=== PATIENT | male | born 1955 | race Caucasian/White ===

== ENCOUNTER 2020-08-12 11:41 | Outpatient (REF) | payer MEDICARE, SELFPAY ==
[2020-08-12 11:58] LABS: MANUAL DIFF FLAG NO
[2020-08-12 12:01] LABS: Basophils Absolute Auto 0.1 X10*3/uL (0.0-0.2); Basophils Percent Auto 0.9 % (0-2); Eosinophils Absolute Auto 0.3 X10*3/uL (0.0-0.4); Eosinophils Percent Auto 3.9 % (0-4); Hemoglobin 14.9 g/dl (14.0-18.0); Imm Gran Abs Auto 0.01 X10*3/uL (0.00-0.03); Imm Gran Pct Auto 0.1 % (0.0-0.4); Lymphocytes Absolute Auto 2.2 X10*3/uL (1.2-4.9); Lymphocytes Percent Auto 28.5 % (20-40); Mean Corpuscular HGB Conc 32.4 g/dl (31.0-36.0); Mean Corpuscular Hemoglobin 32.6 pg (27.0-33.0); Mean Corpuscular Volume 100.7 fL (80-98); Mean Platelet Volume 9.9 fL (9.4-12.4); Monocytes Absolute Auto 0.5 X10*3/uL (0.1-1.2); Monocytes Percent Auto 5.9 % (2-11); Neutrophils Absolute Auto 4.6 X10*3/uL (2.0-8.3); Neutrophils Percent Auto 60.7 % (45-73); Platelet Count 268 X10*3/uL (160-400); Red Blood Count 4.57 X10*6/uL (4.60-5.80); White Blood Count 7.6 X10*3/uL (4.8-10.8)
[2020-08-12 12:17] LABS: Glucose Urine UA NEG (NEG); Leukocyte Esterase Urine NEG (NEG); Nitrite Urine NEG (NEG); Specific Gravity - Urine 1.025 (1.005-1.025); Urine Blood NEG (NEG); Urine Ketones NEG (NEG); Urine Protein NEG (NEG-TRACE)
[2020-08-12 12:18] LABS: Appearance Urine CLEAR; Color Urine YELLOW
[2020-08-12 12:33] LABS: Alanine Aminotransferase 61 U/L (0-40); Albumin Level 4.3 g/dL (3.5-5.0); Alkaline Phosphatase 101 U/L (39-117); Anion Gap 18 (12-20); Aspartate Amino Transferase 54 U/L (5-37); Bilirubin Total 0.7 mg/dL (0.0-1.0); Blood Urea Nitrogen 15 mg/dL (9-16); Calcium 10.2 mg/dL (8.4-10.2); Carbon Dioxide 27 mmol/L (22-29); Chloride 100 mmol/L (96-108); Cholesterol 256 mg/dL; Estimated Glomerular Filt Rate > 60; Glucose Fasting 192 mg/dL (60-99); HDL Cholesterol 46 mg/dL; LDL Cholesterol Calculated 147 mg/dl; Potassium 5.8 mmol/L (3.3-5.1); Sodium 139 mmol/L (135-145); Total Protein 7.5 g/dL (6.5-8.0); Triglycerides 316 mg/dL
[2020-08-12 12:50] LABS: TSH reflex Free T4 1.73 uIU/mL (0.32-4.0)
[2020-08-12 13:00] LABS: Creatinine Urine 129.31 mg/dL; Microalbum/Creatinine Ratio Ur 24.7 ug/mg cr
[2020-08-12 13:05] LABS: Estimated Average Glucose 189 mg/dL; Hemoglobin A1c % 8.2 %
== END 2020-08-12 11:42 | disposition home or self-care (01) ==
LOC: HO.LHD 11:41
PROVIDERS: Visit Provider Internal Medicine
DX: E11.9 Type 2 diabetes mellitus without complications (principal); I10 Essential (primary) hypertension; E78.5 Hyperlipidemia, unspecified; R79.89 Other specified abnormal findings of blood chemistry
CPT/HCPCS: 36415; 80053; 80061; 81003; 82043; 83036; 84443; 85025

== ENCOUNTER 2020-12-17 11:20 | Outpatient (REF) | payer MEDICARE, SELFPAY ==
[2020-12-17 12:14] LABS: MANUAL DIFF FLAG NO
[2020-12-17 12:17] LABS: Basophils Absolute Auto 0.1 X10*3/uL (0.0-0.2); Basophils Percent Auto 0.7 % (0-2); Eosinophils Absolute Auto 0.3 X10*3/uL (0.0-0.4); Eosinophils Percent Auto 4.4 % (0-4); Hematocrit 46.2 % (42-52); Hemoglobin 14.7 g/dl (14.0-18.0); Imm Gran Abs Auto 0.02 X10*3/uL (0.00-0.03); Imm Gran Pct Auto 0.3 % (0.0-0.4); Lymphocytes Absolute Auto 2.4 X10*3/uL (1.2-4.9); Lymphocytes Percent Auto 31.6 % (20-40); Mean Corpuscular HGB Conc 31.8 g/dl (31.0-36.0); Mean Corpuscular Hemoglobin 31.9 pg (27.0-33.0); Mean Corpuscular Volume 100.2 fL (80-98); Mean Platelet Volume 10.3 fL (9.4-12.4); Monocytes Absolute Auto 0.4 X10*3/uL (0.1-1.2); Neutrophils Absolute Auto 4.4 X10*3/uL (2.0-8.3); Platelet Count 271 X10*3/uL (160-400); Red Blood Count 4.61 X10*6/uL (4.60-5.80); Red Cell Distribution Width 13.1 % (11.0-16.0); White Blood Count 7.5 X10*3/uL (4.8-10.8)
[2020-12-17 12:20] LABS: Glucose Urine UA NEG (NEG); Leukocyte Esterase Urine NEG (NEG); Nitrite Urine NEG (NEG); Urine Blood NEG (NEG); Urine Ketones NEG (NEG); Urine Protein NEG (NEG-TRACE)
[2020-12-17 12:21] LABS: Appearance Urine CLEAR; Color Urine YELLOW
[2020-12-17 12:51] LABS: TSH reflex Free T4 1.47 uIU/mL (0.32-4.0)
[2020-12-17 12:52] LABS: Alanine Aminotransferase 41 U/L (0-40); Albumin Level 4.4 g/dL (3.5-5.0); Alkaline Phosphatase 95 U/L (39-117); Anion Gap 14 (12-20); Aspartate Amino Transferase 43 U/L (5-37); Bilirubin Total 0.5 mg/dL (0.0-1.0); Blood Urea Nitrogen 15 mg/dL (9-16); Calcium 10.7 mg/dL (8.4-10.2); Carbon Dioxide 29 mmol/L (22-29); Chloride 101 mmol/L (96-108); Cholesterol 268 mg/dL; Estimated Glomerular Filt Rate > 60; Glucose Fasting 170 mg/dL (60-99); HDL Cholesterol 43 mg/dL; LDL Cholesterol Calculated 172 mg/dl; Sodium 139 mmol/L (135-145); Total Protein 7.6 g/dL (6.5-8.0); Triglycerides 265 mg/dL; Uric Acid 5.5 mg/dL (3.4-7.0)
[2020-12-17 13:30] LABS: Microalbum/Creatinine Ratio Ur 61.8 ug/mg cr
[2020-12-17 13:57] LABS: Estimated Average Glucose 192 mg/dL; Hemoglobin A1c % 8.3 %
== END 2020-12-17 11:21 | disposition home or self-care (01) ==
LOC: HO.LHD 11:20
PROVIDERS: Visit Provider Internal Medicine
DX: E78.00 Pure hypercholesterolemia, unspecified (principal); E11.9 Type 2 diabetes mellitus without complications; I10 Essential (primary) hypertension; M10.9 Gout, unspecified
CPT/HCPCS: 36415; 80053; 80061; 81003; 82043; 83036; 84443; 84550; 85025

== ENCOUNTER 2021-06-03 12:30 | Outpatient (REF) | payer MEDICARE, SELFPAY ==
[2021-06-03 12:36] LABS: MANUAL DIFF FLAG NO
[2021-06-03 12:43] LABS: Appearance Urine HAZY; Color Urine YELLOW; Glucose Urine UA NEG (NEG); Leukocyte Esterase Urine NEG (NEG); Nitrite Urine NEG (NEG); UACC Culture Trigger NO; Urine Blood 3+ (NEG); Urine Ketones NEG (NEG); Urine Protein TRACE MG/DL (NEG-TRACE)
[2021-06-03 12:49] LABS: Basophils Absolute Auto 0.1 X10*3/uL (0.0-0.2); Basophils Percent Auto 0.6 % (0-2); Eosinophils Absolute Auto 0.4 X10*3/uL (0.0-0.4); Eosinophils Percent Auto 4.7 % (0-4); Hematocrit 43.7 % (42.0-52.0); Hemoglobin 14.2 g/dl (14.0-18.0); Imm Gran Abs Auto 0.02 X10*3/uL (0.00-0.03); Imm Gran Pct Auto 0.2 % (0.0-0.4); Lymphocytes Absolute Auto 2.3 X10*3/uL (1.2-4.9); Lymphocytes Percent Auto 27.3 % (20-40); Mean Corpuscular HGB Conc 32.5 g/dl (31.0-36.0); Mean Corpuscular Hemoglobin 32.5 pg (27.0-33.0); Monocytes Absolute Auto 0.5 X10*3/uL (0.1-1.2); Monocytes Percent Auto 5.9 % (2-11); Neutrophils Absolute Auto 5.2 x10*3/uL (2.0-8.3); Neutrophils Percent Auto 61.3 % (45-73); Platelet Count 283 X10*3/uL (160-400); Red Blood Count 4.37 X10*6/uL (4.60-5.80); Red Cell Distribution Width 13.2 % (11.0-16.0); White Blood Count 8.5 X10*3/uL (4.8-10.8)
[2021-06-03 12:53] LABS: Estimated Average Glucose 157 mg/dL; Hemoglobin A1c % 7.1 %
[2021-06-03 13:01] LABS: Mucus Urine TRACE /LPF; RBC Urine 50-75 /HPF (0); Squamous Epithelial Cell Urine TRACE /LPF; WBC Urine 0 /HPF (0-4)
[2021-06-03 13:03] LABS: Alanine Aminotransferase 41 U/L (0-40); Albumin Level 4.3 g/dL (3.5-5.0); Alkaline Phosphatase 88 U/L (39-117); Anion Gap 13 (12-20); Aspartate Amino Transferase 29 U/L (5-37); Bilirubin Total 0.7 mg/dL (0.0-1.0); Blood Urea Nitrogen 9 mg/dL (9-16); Calcium 10.3 mg/dL (8.4-10.2); Carbon Dioxide 31 mmol/L (22-29); Chloride 103 mmol/L (96-108); Cholesterol 250 mg/dL; Estimated Glomerular Filt Rate > 60; Glucose Fasting 121 mg/dL (60-99); HDL Cholesterol 45 mg/dL; LDL Cholesterol Calculated 151 mg/dl; Potassium 5.4 mmol/L (3.3-5.1); Sodium 142 mmol/L (135-145); Total Protein 7.4 g/dL (6.5-8.0); Triglycerides 273 mg/dL; Uric Acid 5.7 mg/dL (3.4-7.0)
[2021-06-03 13:06] LABS: Creatinine Urine 164.15 mg/dL; Microalbum/Creatinine Ratio Ur 49.3 ug/mg cr
[2021-06-03 13:24] LABS: TSH reflex Free T4 2.14 uIU/mL (0.32-4.0)
[2021-06-03 13:26] LABS: Erythrocyte Sedimentation Rate 17 MM/HR (0-15)
== END 2021-06-03 12:31 | disposition home or self-care (01) ==
LOC: HO.LHD 12:30
PROVIDERS: Visit Provider Internal Medicine
DX: I10 Essential (primary) hypertension (principal); E11.9 Type 2 diabetes mellitus without complications; E78.00 Pure hypercholesterolemia, unspecified; E55.9 Vitamin D deficiency, unspecified; M10.9 Gout, unspecified; M16.0 Bilateral primary osteoarthritis of hip; M17.11 Unilateral primary osteoarthritis, right knee; M50.30 Other cervical disc degeneration, unspecified cervical region; M51.36 Other intervertebral disc degeneration, lumbar region
CPT/HCPCS: 36415; 80053; 80061; 81001; 82043; 82306; 83036; 84443; 84550; 85025; 85652

== ENCOUNTER 2021-08-27 14:45 | Emergency (ER) | payer MEDICARE, SELFPAY ==
--- NOTE | ~2021-08-27 | XR_ITS ---
EXAMINATION: XR CHEST CLINICAL INFORMATION: Chest pain COMPARISON: Previous chest x-ray November 2006 TECHNIQUE: Frontal view of the chest was obtained. FINDINGS: The cardiac silhouette is upper normal in size. Hilar and mediastinal contours are unremarkable. There is a 4 x 9 mm nodule at the right lung apex. This is stable from previous exam and probably represents a calcified granuloma. The lungs are otherwise clear. There is no pleural effusion or pneumothorax. Bony structures are unremarkable. XR/XR chest 1V IMPRESSION: Upper normal-size cardiac silhouette. No evidence for acute disease in the chest.
--- NOTE | 2021-08-27 14:55 | ECG_ITS ---
Test Reason : CHEST PAIN Blood Pressure : / mmHG Vent. Rate : 074 BPM Atrial Rate : 074 BPM P-R Int : 170 ms QRS Dur : 168 ms QT Int : 436 ms P-R-T Axes : -27 043 029 degrees QTc Int : 483 ms Normal sinus rhythm Right bundle branch block Abnormal ECG When compared with ECG of 16-DEC-2006 09:37, Right bundle branch block is now Present Referred By: Generic ED Physician Electronically Signed By:SIXTO VELAZQUEZ
[2021-08-27 14:57] VITALS: BP 154/77; BP 184/100; PULSE 81; PULSE 86; RESP 18; TEMP 36.8; O2SAT 95; O2SAT 96; BMI 37.3
[2021-08-27 15:20] VITALS: BP 101/79; PULSE 82; RESP 19; TEMP 36.9; O2SAT 94
--- NOTE | 2021-08-27 15:23 | ED_ITS ---
HPI - Chest Pain General Chief Complaint: Chest Pain Stated Complaint: CP Time Seen by Provider: 08/27/21 15:20 Source: patient Mode of arrival: ambulatory Limitations: no limitations Related Data Home Medications Medication Instructions Recorded Confirmed aspirin 81 mg tablet,delayed 81 mg PO DAILY 03/03/20 08/27/21 release (Adult Aspirin Regimen) cholecalciferol (vitamin D3) 25 25 mcg PO DAILY 03/03/20 08/27/21 mcg (1,000 unit) capsule colchicine 0.6 mg tablet 0.6 mg PO DAILY 03/03/20 08/27/21 lubiprostone 24 mcg capsule 24 mcg PO DAILY 03/03/20 08/27/21 (Amitiza) Previous Rx's Medication Instructions Recorded clobetasol 0.05 % topical ointment 1 appl TOPICAL BEDTIME 30 Days #60 08/24/20 g triamcinolone acetonide 0.5 % 1 appl TOPICAL BID PRN #15 g 01/27/21 topical cream lisinopril 30 mg tablet 30 mg PO DAILY 90 Days #90 tab 02/16/21 rosuvastatin 20 mg tablet 20 mg PO DAILY 90 Days #90 tab 02/16/21 metformin 1,000 mg tablet 1,000 mg PO BID 90 Days #180 tab 02/17/21 allopurinol 300 mg tablet 300 mg PO DAILY #90 tab 03/25/21 amitriptyline 50 mg tablet 50 mg PO BEDTIME #90 tab 03/25/21 carisoprodol 350 mg tablet (Soma) 350 mg PO BEDTIME PRN 30 Days #30 06/07/21 tab gabapentin 300 mg capsule 300 mg PO TID 90 Days #270 cap 06/07/21 lithium carbonate 300 mg capsule 300 mg PO DAILY 90 Days #270 cap 07/20/21 quetiapine 25 mg tablet 37.5 mg PO DAILY 90 Days #135 tab 08/24/21 Allergies Allergy/AdvReac Type Severity Reaction Status Date / Time atorvastatin AdvReac Unknown constipatio Verified 08/27/21 12:32 n Pt states no fod/medication Allergy Unknown Unknown Uncoded 08/27/21 12:32 al [facility] Past Medical History Medical History Benign essential hypertension Bipolar disorder Constipation Degenerative disc disease, cervical Degenerative joint disease of right knee Diabetes mellitus Elevated LFTs Gout Hand eczema Hyperlipidemia Hypertension Left shoulder pain Lumbar degenerative disc disease Mild chronic obstructive pulmonary disease Obesity (BMI 30-39.9) Osteoarthritis of hips, bilateral Pure hypercholesterolemia Radicular pain of right upper extremity Right shoulder pain Smoker Vitamin D deficiency Surgical History No significant past surgical history Family History Family History Mother Diabetes mellitus Hypertension Cardiovascular disease Social History Social History Housing: House Alcohol intake: former Patient Tobacco Use Status: Current everyday Tobacco user Cigarette Packs Per Day: 1.5 e-Cigarette/Vaping Use: Never Used Second Hand Smoke Exposure: Yes Advance Directives: No Advance Directives Information Provided: No service: No Current occupational status: disabled Current occupational exposures/hazards: No Cognitive needs: No Hearing needs: No Vision needs: Yes Physical Exam Vital Signs: Vital Signs: Last Vital Signs Temp 98.6 F 08/27/21 16:59 Pulse 80 08/27/21 16:59 Resp 23 H 08/27/21 16:59 BP 136/85 08/27/21 16:59 Pulse Ox 96 08/27/21 16:59 BMI result Body Mass Index 37.3 MDM - Chest Pain Lab Data Result diagrams: 08/27/21 15:19 08/27/21 15:19 Labs: Lab Results 08/27/21 08/27/21 08/27/21 Range/Units 15:19 15:19 15:19 WBC 9.9 (4.8-10.8) X10*3/uL RBC 4.33 L (4.60-5.80) X10*6/uL Hgb 14.0 (14.0-18.0) g/dl Hct 42.6 (42.0-52.0) % MCV 98.4 H (80.0-98.0) fL MCH 32.3 (27.0-33.0) pg MCHC 32.9 (31.0-36.0) g/dl RDW 13.4 (11.0-16.0) % Plt Count 275 (160-400) X10*3/uL MPV 9.3 L (9.4-12.4) fL Immature Gran % (Auto) 0.4 (0.0-0.4) % Neut % (Auto) 70.1 (45-73) % Lymph % (Auto) 20.8 (20-40) % [place] % (Auto) 4.9 (2-11) % Eos % (Auto) 3.2 (0-4) % Baso % (Auto) 0.6 (0-2) % Lymph # (Auto) 2.1 (1.2-4.9) X10*3/uL [place] # (Auto) 0.5 (0.1-1.2) X10*3/uL Eos # (Auto) 0.3 (0.0-0.4) X10*3/uL Baso # (Auto) 0.1 (0.0-0.2) X10*3/uL Abs Immat Gran (auto) 0.04 H (0.00-0.03) X10*3/uL Absolute Neuts (auto) 6.9 (2.0-8.3) x10*3/uL Absolute Nucleated RBC 0.000 (0.0-0.012) X10*3/uL Nucleated RBC % (auto) 0.0 (0.0-0.2) /100WBC Sodium 138 (135-145) mmol/L Potassium 5.0 (3.3-5.1) mmol/L Chloride 101 (96-108) mmol/L Carbon Dioxide 28 (22-29) mmol/L Anion Gap 14 (12-20) BUN 14 D (9-16) mg/dL Creatinine 0.99 (0.5-1.4) mg/dL Estim Creat Clear Calc 105.9 Estimated GFR > 60 Random Glucose 139 H (60-115) mg/dL Calcium 10.5 H (8.4-10.2) mg/dL Magnesium 1.9 (1.6-2.6) mg/dL Total Bilirubin 0.4 (0.0-1.0) mg/dL Direct Bilirubin 0.2 (0.0-0.5) mg/dL AST 31 (5-37) U/L ALT 44 H (0-40) U/L Alkaline Phosphatase 89 (39-117) U/L Troponin I High Sens < 3.5 (<3.5-35.0) ng/L B-Natriuretic Peptide < 10 (<100) pg/mL Total Protein 7.4 (6.5-8.0) g/dL Albumin 4.3 (3.5-5.0) g/dL Lipase 51 (8-78) U/L 08/27/21 Range/Units 18:21 WBC (4.8-10.8) X10*3/uL RBC (4.60-5.80) X10*6/uL Hgb (14.0-18.0) g/dl Hct (42.0-52.0) % MCV (80.0-98.0) fL MCH (27.0-33.0) pg MCHC (31.0-36.0) g/dl RDW (11.0-16.0) % Plt Count (160-400) X10*3/uL MPV (9.4-12.4) fL Immature Gran % (Auto) (0.0-0.4) % Neut % (Auto) (45-73) % Lymph % (Auto) (20-40) % [place] % (Auto) (2-11) % Eos % (Auto) (0-4) % Baso % (Auto) (0-2) % Lymph # (Auto) (1.2-4.9) X10*3/uL [place] # (Auto) (0.1-1.2) X10*3/uL Eos # (Auto) (0.0-0.4) X10*3/uL Baso # (Auto) (0.0-0.2) X10*3/uL Abs Immat Gran (auto) (0.00-0.03) X10*3/uL Absolute Neuts (auto) (2.0-8.3) x10*3/uL Absolute Nucleated RBC (0.0-0.012) X10*3/uL Nucleated RBC % (auto) (0.0-0.2) /100WBC Sodium (135-145) mmol/L Potassium (3.3-5.1) mmol/L Chloride (96-108) mmol/L Carbon Dioxide (22-29) mmol/L Anion Gap (12-20) BUN (9-16) mg/dL Creatinine (0.5-1.4) mg/dL Estim Creat Clear Calc Estimated GFR Random Glucose (60-115) mg/dL Calcium (8.4-10.2) mg/dL Magnesium (1.6-2.6) mg/dL Total Bilirubin (0.0-1.0) mg/dL Direct Bilirubin (0.0-0.5) mg/dL AST (5-37) U/L ALT (0-40) U/L Alkaline Phosphatase (39-117) U/L Troponin I High Sens < 3.5 (<3.5-35.0) ng/L B-Natriuretic Peptide (<100) pg/mL Total Protein (6.5-8.0) g/dL Albumin (3.5-5.0) g/dL Lipase (8-78) U/L Discharge Plan Discharge Clinical Impression: Chest pain Patient Disposition: Home, Self-Care Instructions: Chest Pain (ED) Additional Instructions: Take your medications as prescribed. Follow-up with your primary care provider this week. Follow-up with Cardiology this week. Return to the emergency department with new or worsening symptoms. Such as fevers, chills, chest pain, shortness of breath, nausea, vomiting, dizziness, headache, vision changes, lethargy, arm tingling In case of emergency call 911 XR/XR chest 1V IMPRESSION: Upper normal-size cardiac silhouette. No evidence for acute disease in the chest. Prescriptions: No Action triamcinolone acetonide 0.5 % cream 1 appl topical BID PRN (Reason: rash) Qty: 15 0RF metformin 1,000 mg tablet 1,000 mg PO BID 90 Days Qty: 180 1RF allopurinol 300 mg tablet 300 mg PO DAILY Qty: 90 3RF amitriptyline 50 mg tablet 50 mg PO BEDTIME Qty: 90 3RF lithium carbonate 300 mg capsule 300 mg PO DAILY 90 Days Qty: 270 1RF Rx Instructions: One 300mg capsule in am and 2 300mg capsule in pm quetiapine 25 mg tablet 37.5 mg PO DAILY 90 Days Qty: 135 0RF Amitiza 24 mcg capsule 24 mcg PO DAILY 0RF aspirin [Adult Aspirin Regimen] 81 mg tablet,delayed release (DR/EC) 81 mg PO DAILY 0RF cholecalciferol (vitamin D3) 25 mcg (1,000 unit) capsule 25 mcg PO DAILY 0RF colchicine 0.6 mg tablet 0.6 mg PO DAILY 0RF clobetasol 0.05 % ointment 1 appl topical BEDTIME 30 Days Qty: 60 3RF Rx Instructions: apply to both hands once a day as instructed lisinopril 30 mg tablet 30 mg PO DAILY 90 Days Qty: 90 3RF rosuvastatin 20 mg tablet 20 mg PO DAILY 90 Days Qty: 90 1RF carisoprodol [Soma] 350 mg tablet 350 mg PO BEDTIME PRN (Reason: muscle pain) 30 Days Qty: 30 1RF gabapentin 300 mg capsule 300 mg PO TID 90 Days Qty: 270 3RF Referrals: Brian Cleveland MD [Primary Care Provider] - 2 days Mauro Easley MD [Physician] - 1 week Interventions: ED Discharge Assessment Last Done: 08/27/21 19:38 Discharge Date/Time: 08/27/21 19:38
[2021-08-27 15:27] LABS: MANUAL DIFF FLAG NO
[2021-08-27 15:29] LABS: Basophils Absolute Auto 0.1 X10*3/uL (0.0-0.2); Basophils Percent Auto 0.6 % (0-2); Eosinophils Absolute Auto 0.3 X10*3/uL (0.0-0.4); Eosinophils Percent Auto 3.2 % (0-4); Hematocrit 42.6 % (42.0-52.0); Imm Gran Abs Auto 0.04 X10*3/uL (0.00-0.03); Imm Gran Pct Auto 0.4 % (0.0-0.4); Lymphocytes Absolute Auto 2.1 X10*3/uL (1.2-4.9); Lymphocytes Percent Auto 20.8 % (20-40); Mean Corpuscular HGB Conc 32.9 g/dl (31.0-36.0); Mean Corpuscular Hemoglobin 32.3 pg (27.0-33.0); Mean Corpuscular Volume 98.4 fL (80.0-98.0); Mean Platelet Volume 9.3 fL (9.4-12.4); Monocytes Absolute Auto 0.5 X10*3/uL (0.1-1.2); Monocytes Percent Auto 4.9 % (2-11); Neutrophils Absolute Auto 6.9 x10*3/uL (2.0-8.3); Neutrophils Percent Auto 70.1 % (45-73); Platelet Count 275 X10*3/uL (160-400); Red Blood Count 4.33 X10*6/uL (4.60-5.80); Red Cell Distribution Width 13.4 % (11.0-16.0); White Blood Count 9.9 X10*3/uL (4.8-10.8)
[2021-08-27 15:46] LABS: Alanine Aminotransferase 44 U/L (0-40); Albumin Level 4.3 g/dL (3.5-5.0); Alkaline Phosphatase 89 U/L (39-117); Anion Gap 14 (12-20); Aspartate Amino Transferase 31 U/L (5-37); Bilirubin Direct 0.2 mg/dL (0.0-0.5); Bilirubin Total 0.4 mg/dL (0.0-1.0); Blood Urea Nitrogen 14 mg/dL (9-16); Calcium 10.5 mg/dL (8.4-10.2); Carbon Dioxide 28 mmol/L (22-29); Chloride 101 mmol/L (96-108); Creatinine Clr Calc Pharmacy 105.9; Estimated Glomerular Filt Rate > 60; Glucose Random 139 mg/dL (60-115); Lipase 51 U/L (8-78); Magnesium 1.9 mg/dL (1.6-2.6); Sodium 138 mmol/L (135-145); Total Protein 7.4 g/dL (6.5-8.0)
--- NOTE | 2021-08-27 15:47 | ED_ITS ---
HPI - Chest Pain General Chief Complaint: Chest Pain Stated Complaint: CP Time Seen by Provider: 08/27/21 15:20 Source: patient Mode of arrival: ambulatory Limitations: no limitations History of Present Illness HPI narrative: This is a 66-year-old male past medical history significant for diabetes, hypertension, hyperlipidemia, current daily smoker, gout presenting to the emergency department with complaints of chest pain times 2-3 weeks. He tells me that the chest pain is stabbing, intermittent severe in nature localized the left side of his chest. He tells me that every time he smokes his chest pain gets worse and it is worse when he is lying down as well. He tells me that taking aspirin or nitroglycerin makes the pain better. He also mentions that he is worried that his blood pressure may be high he has not been taking it at home however. He is taking all his medications as prescribed. He tells me he is trying to lose weight, trying new diets with little to no success. He denies shortness of breath, headache, dizziness, vision changes, neck pain, weakness, nausea, vomiting, abdominal pain, back pain, leg swelling. MD complaint: chest pain Onset (ago): week(s) (2) Timing of current episode: episodic Prior episodes: Yes Onset: during rest Pain location: left chest Pain radiation: none Severity: severe Quality: other (stabbing ) Relieving factors: nitroglycerin and other (ASA) Exacerbating factors: supine and other (smoking ) Treatment prior to arrival: none Related Data Home Medications Medication Instructions Recorded Confirmed aspirin 81 mg tablet,delayed 81 mg PO DAILY 03/03/20 08/27/21 release (Adult Aspirin Regimen) cholecalciferol (vitamin D3) 25 25 mcg PO DAILY 03/03/20 08/27/21 mcg (1,000 unit) capsule colchicine 0.6 mg tablet 0.6 mg PO DAILY 03/03/20 08/27/21 lubiprostone 24 mcg capsule 24 mcg PO DAILY 03/03/20 08/27/21 (Amitiza) Previous Rx's Medication Instructions Recorded clobetasol 0.05 % topical ointment 1 appl TOPICAL BEDTIME 30 Days #60 08/24/20 g triamcinolone acetonide 0.5 % 1 appl TOPICAL BID PRN #15 g 01/27/21 topical cream lisinopril 30 mg tablet 30 mg PO DAILY 90 Days #90 tab 02/16/21 rosuvastatin 20 mg tablet 20 mg PO DAILY 90 Days #90 tab 02/16/21 metformin 1,000 mg tablet 1,000 mg PO BID 90 Days #180 tab 02/17/21 allopurinol 300 mg tablet 300 mg PO DAILY #90 tab 03/25/21 amitriptyline 50 mg tablet 50 mg PO BEDTIME #90 tab 03/25/21 carisoprodol 350 mg tablet (Soma) 350 mg PO BEDTIME PRN 30 Days #30 06/07/21 tab gabapentin 300 mg capsule 300 mg PO TID 90 Days #270 cap 06/07/21 lithium carbonate 300 mg capsule 300 mg PO DAILY 90 Days #270 cap 07/20/21 quetiapine 25 mg tablet 37.5 mg PO DAILY 90 Days #135 tab 08/24/21 Allergies Allergy/AdvReac Type Severity Reaction Status Date / Time atorvastatin AdvReac Unknown constipatio Verified 08/27/21 12:32 n Pt states no fod/medication Allergy Unknown Unknown Uncoded 08/27/21 12:32 al Review of Systems Review of Systems: Constitutional : No Weight loss, No Fever, No Chills, No Fatigue, No Malaise ENT/Mouth : No sore throat, No Rhinorrhea Eyes: No Eye Pain, No Swelling, No Redness Cardiovascular : No Chest Pain, No SOB, No Dyspnea on Exertion, No Orthopnea, No Edema, No Palpitations Respiratory : No Cough, No Sputum, No Wheezing Gastrointestinal : No Nausea, No Vomiting, No Diarrhea, No Constipation, No abdominal Pain, No Hematochezia, No Melena Genitourinary : No Dysuria, No Urinary Frequency, No Hematuria, Musculoskeletal : No joint pain, No Myalgias, No Joint Swelling Skin : No Skin Lesions, No rash Neuro : No Weakness, No Numbness, No Dizziness, No Headache Psych : No Anxiety/Panic, No Depression All other systems reviewed and are negative Yes all other systems are reviewed and are negative [facility] Past Medical History Attestation statement: The following information was validated with the patient. Source: old records reviewed and nursing notes reviewed Medical History Benign essential hypertension Bipolar disorder Constipation Degenerative disc disease, cervical Degenerative joint disease of right knee Diabetes mellitus Elevated LFTs Gout Hand eczema Hyperlipidemia Hypertension Left shoulder pain Lumbar degenerative disc disease Mild chronic obstructive pulmonary disease Obesity (BMI 30-39.9) Osteoarthritis of hips, bilateral Pure hypercholesterolemia Radicular pain of right upper extremity Right shoulder pain Smoker Vitamin D deficiency Surgical History No significant past surgical history Family History Family History Mother Diabetes mellitus Hypertension Cardiovascular disease Social History Social History Housing: House Alcohol intake: former Patient Tobacco Use Status: Current everyday Tobacco user Cigarette Packs Per Day: 1.5 e-Cigarette/Vaping Use: Never Used Second Hand Smoke Exposure: Yes Advance Directives: No Advance Directives Information Provided: No service: No Current occupational status: disabled Current occupational exposures/hazards: No Cognitive needs: No Hearing needs: No Vision needs: Yes Physical Exam Vital Signs: Vital Signs: Last Vital Signs Temp 98.6 F 08/27/21 16:59 Pulse 80 08/27/21 16:59 Resp 23 H 08/27/21 16:59 BP 136/85 08/27/21 16:59 Pulse Ox 96 08/27/21 16:59 BMI result Body Mass Index 37.3 VSS Appearance: Alert.? Oriented X3.? No acute distress.? Head: Normocephalic, atraumatic, no step-offs or deformities Eyes: Pupils equal, round and reactive to light.? ENT: Pharynx normal.? Neck: Normal inspection.? Neck supple.? CVS: Normal heart rate and rhythm.? Pulses normal.? Respiratory: No respiratory distress.? Breath sounds normal.? Abdomen: Soft and nontender.? Skin: Skin warm and dry.? Normal skin color.? Normal skin turgor.? Extremities: No lower extremity edema.? No calf ttp. 5/5 strength to bilateral upper and lower extremities Back: No midline tenderness, no C-spine tenderness, full range of motion, no CVA tenderness bilaterally Neuro: Oriented X 3.? No motor deficit.? No sensory deficit. CN 2-12 intact Course Course Course Narrative: Discussed case w/ who reviewed patient's EKG and tells me he agrees with outpatient Cardiology follow-up as patient is not complaining of chest pain at this time. Reevaluation(s) Reevaluation #1: CBC within normal limits. Appears to be at patient's baseline. No acute electrolyte abnormalities. Troponin negative, EKG nonischemic unlikely ACS. BNP within normal limits unlikely CHF. Lipase within normal limits. Chest x- ray shows upper normal size cardiac silhouette likely secondary to smoking and COPD. No other acute findings. Time: 16:33 Reevaluation #2: Second troponin negative. Patient tells me his chest pain has subsided. At this time patient feels well. Will have him follow up with Cardiology outpatient. Give him worrisome signs and symptoms and advised him to return if any of these occur. At this time comfortable discharge home with PCP and cardiology follow-up. Time: 19:05 MDM - Chest Pain MDM Narrative Medical decision making narrative: [birth year] 66 yo m pmhx htn, hld, DM, current smoker presents to ED w/ CP X 2 weeks intermittent in nature. Patient was given nitro by EMS, patient reports that the nitro significantly helped his chest pain. PE- benign. No calf tenderness. No lower extremity edema. Plan- labs, ekg, telemetry monitor, trop, bnp. Will rule out ACS, CHF Medical Records Data Attestation: I reviewed the patient's medical records. Lab Data Attestation: I reviewed the patient's lab results. Result diagrams: 08/27/21 15:19 08/27/21 15:19 Labs: Lab Results 08/27/21 08/27/21 08/27/21 Range/Units 15:19 15:19 15:19 WBC 9.9 (4.8-10.8) X10*3/uL RBC 4.33 L (4.60-5.80) X10*6/uL Hgb 14.0 (14.0-18.0) g/dl Hct 42.6 (42.0-52.0) % MCV 98.4 H (80.0-98.0) fL MCH 32.3 (27.0-33.0) pg MCHC 32.9 (31.0-36.0) g/dl RDW 13.4 (11.0-16.0) % Plt Count 275 (160-400) X10*3/uL MPV 9.3 L (9.4-12.4) fL Immature Gran % (Auto) 0.4 (0.0-0.4) % Neut % (Auto) 70.1 (45-73) % Lymph % (Auto) 20.8 (20-40) % [place] % (Auto) 4.9 (2-11) % Eos % (Auto) 3.2 (0-4) % Baso % (Auto) 0.6 (0-2) % Lymph # (Auto) 2.1 (1.2-4.9) X10*3/uL [place] # (Auto) 0.5 (0.1-1.2) X10*3/uL Eos # (Auto) 0.3 (0.0-0.4) X10*3/uL Baso # (Auto) 0.1 (0.0-0.2) X10*3/uL Abs Immat Gran (auto) 0.04 H (0.00-0.03) X10*3/uL Absolute Neuts (auto) 6.9 (2.0-8.3) x10*3/uL Absolute Nucleated RBC 0.000 (0.0-0.012) X10*3/uL Nucleated RBC % (auto) 0.0 (0.0-0.2) /100WBC Sodium 138 (135-145) mmol/L Potassium 5.0 (3.3-5.1) mmol/L Chloride 101 (96-108) mmol/L Carbon Dioxide 28 (22-29) mmol/L Anion Gap 14 (12-20) BUN 14 D (9-16) mg/dL Creatinine 0.99 (0.5-1.4) mg/dL Estim Creat Clear Calc 105.9 Estimated GFR > 60 Random Glucose 139 H (60-115) mg/dL Calcium 10.5 H (8.4-10.2) mg/dL Magnesium 1.9 (1.6-2.6) mg/dL Total Bilirubin 0.4 (0.0-1.0) mg/dL Direct Bilirubin 0.2 (0.0-0.5) mg/dL AST 31 (5-37) U/L ALT 44 H (0-40) U/L Alkaline Phosphatase 89 (39-117) U/L Troponin I High Sens < 3.5 (<3.5-35.0) ng/L B-Natriuretic Peptide < 10 (<100) pg/mL Total Protein 7.4 (6.5-8.0) g/dL Albumin 4.3 (3.5-5.0) g/dL Lipase 51 (8-78) U/L 08/27/21 Range/Units 18:21 WBC (4.8-10.8) X10*3/uL RBC (4.60-5.80) X10*6/uL Hgb (14.0-18.0) g/dl Hct (42.0-52.0) % MCV (80.0-98.0) fL MCH (27.0-33.0) pg MCHC (31.0-36.0) g/dl RDW (11.0-16.0) % Plt Count (160-400) X10*3/uL MPV (9.4-12.4) fL Immature Gran % (Auto) (0.0-0.4) % Neut % (Auto) (45-73) % Lymph % (Auto) (20-40) % [place] % (Auto) (2-11) % Eos % (Auto) (0-4) % Baso % (Auto) (0-2) % Lymph # (Auto) (1.2-4.9) X10*3/uL [place] # (Auto) (0.1-1.2) X10*3/uL Eos # (Auto) (0.0-0.4) X10*3/uL Baso # (Auto) (0.0-0.2) X10*3/uL Abs Immat Gran (auto) (0.00-0.03) X10*3/uL Absolute Neuts (auto) (2.0-8.3) x10*3/uL Absolute Nucleated RBC (0.0-0.012) X10*3/uL Nucleated RBC % (auto) (0.0-0.2) /100WBC Sodium (135-145) mmol/L Potassium (3.3-5.1) mmol/L Chloride (96-108) mmol/L Carbon Dioxide (22-29) mmol/L Anion Gap (12-20) BUN (9-16) mg/dL Creatinine (0.5-1.4) mg/dL Estim Creat Clear Calc Estimated GFR Random Glucose (60-115) mg/dL Calcium (8.4-10.2) mg/dL Magnesium (1.6-2.6) mg/dL Total Bilirubin (0.0-1.0) mg/dL Direct Bilirubin (0.0-0.5) mg/dL AST (5-37) U/L ALT (0-40) U/L Alkaline Phosphatase (39-117) U/L Troponin I High Sens < 3.5 (<3.5-35.0) ng/L B-Natriuretic Peptide (<100) pg/mL Total Protein (6.5-8.0) g/dL Albumin (3.5-5.0) g/dL Lipase (8-78) U/L ECG Data ECG #1: Attestation: I personally reviewed and interpreted this ECG as follows: ECG interpretation date: 08/27/21 ECG interpretation time: 19:04 Prior ECG tracings: available for review Interpretation: Ventricular rate of 74, MT normal, QRS normal, QT/QTC normal. EKG shows normal sinus rhythm with a right bundle branch block. When compared to EKG from 2006 a right bundle branch block is now present. No evidence signs of ischemia at this time. Critical Care Time Critical Care Time Critical Care Time: No Discharge Plan Discharge Clinical Impression: Chest pain Patient Disposition: Home, Self-Care Instructions: Chest Pain (ED) Additional Instructions: Take your medications as prescribed. Follow-up with your primary care provider this week. Follow-up with Cardiology this week. Return to the emergency department with new or worsening symptoms. Such as fevers, chills, chest pain, shortness of breath, nausea, vomiting, dizziness, he adache, vision changes, lethargy, arm tingling In case of emergency call 911 XR/XR chest 1V IMPRESSION: Upper normal-size cardiac silhouette. No evidence for acute disease in the chest. Prescriptions: No Action triamcinolone acetonide 0.5 % cream 1 appl topical BID PRN (Reason: rash) Qty: 15 0RF metformin 1,000 mg tablet 1,000 mg PO BID 90 Days Qty: 180 1RF allopurinol 300 mg tablet 300 mg PO DAILY Qty: 90 3RF amitriptyline 50 mg tablet 50 mg PO BEDTIME Qty: 90 3RF lithium carbonate 300 mg capsule 300 mg PO DAILY 90 Days Qty: 270 1RF Rx Instructions: One 300mg capsule in am and 2 300mg capsule in pm quetiapine 25 mg tablet 37.5 mg PO DAILY 90 Days Qty: 135 0RF Amitiza 24 mcg capsule 24 mcg PO DAILY 0RF aspirin [Adult Aspirin Regimen] 81 mg tablet,delayed release (DR/EC) 81 mg PO DAILY 0RF cholecalciferol (vitamin D3) 25 mcg (1,000 unit) capsule 25 mcg PO DAILY 0RF colchicine 0.6 mg tablet 0.6 mg PO DAILY 0RF clobetasol 0.05 % ointment 1 appl topical BEDTIME 30 Days Qty: 60 3RF Rx Instructions: apply to both hands once a day as instructed lisinopril 30 mg tablet 30 mg PO DAILY 90 Days Qty: 90 3RF rosuvastatin 20 mg tablet 20 mg PO DAILY 90 Days Qty: 90 1RF carisoprodol [Soma] 350 mg tablet 350 mg PO BEDTIME PRN (Reason: muscle pain) 30 Days Qty: 30 1RF gabapentin 300 mg capsule 300 mg PO TID 90 Days Qty: 270 3RF Referrals: Brian Cleveland MD [Primary Care Provider] - 2 days Mauro Easley MD [Physician] - 1 week
[2021-08-27 15:51] LABS: Troponin-I High Sensitivity < 3.5 ng/L (<3.5-35.0)
[2021-08-27 16:18] LABS: B Type Natriuretic Peptide < 10 pg/mL (<100)
[2021-08-27 16:59] VITALS: BP 136/85; PULSE 80; RESP 23; TEMP 37; O2SAT 96
[2021-08-27 18:51] LABS: Troponin-I High Sensitivity < 3.5 ng/L (<3.5-35.0)
== END 2021-08-27 19:38 | disposition home or self-care (01) ==
PROVIDERS: Physician Assistant; Emergency Provider Emergency Medicine Emergency Medical Services; PCP Internal Medicine
DX: R07.9 Chest pain, unspecified (principal); I10 Essential (primary) hypertension; E78.5 Hyperlipidemia, unspecified; E11.9 Type 2 diabetes mellitus without complications; J44.9 Chronic obstructive pulmonary disease, unspecified; F17.200 Nicotine dependence, unspecified, uncomplicated; Z79.82 Long term (current) use of aspirin; Z79.02 Long term (current) use of antithrombotics/antiplatelets; Z79.899 Other long term (current) drug therapy
CPT/HCPCS: 36415; 71045; 80048; 80076; 83690; 83735; 83880; 84484; 85025; 93005; 99284

== ENCOUNTER → 2021-11-02 14:14 | Outpatient (BNVA) | payer MEDICARE, SELFPAY | PROVIDERS: PCP Internal Medicine; Referring Provider Internal Medicine; Visit Provider Internal Medicine Cardiovascular Disease | DX: R07.9 Chest pain, unspecified (principal); I45.10 Unspecified right bundle-branch block | CPT/HCPCS: 99202 ==